=== PATIENT | male | born 1930 | race Caucasian/White ===

== ENCOUNTER → 2016-08-19 | Outpatient (CLI) | payer MEDICARE ==
[2016-08-19 14:51] LABS: BASO # 0.1 x10^3/uL (0.0-0.2); BASO % 1 % (0-3); EOS % 3 % (0-3); HEMATOCRIT 42.4 % (39.0-53.0); HEMOGLOBIN 14.2 g/dL (13.0-17.5); LYMPH # 2.2 x10^3/uL (1.0-4.8); LYMPH % 27 % (24-48); MEAN CORPUSCULAR HEMOGLOBIN 32 pg (25-35); MEAN CORPUSCULAR HGB CONC 33 g/dL (31-37); MEAN CORPUSCULAR VOLUME 96 fL (79-100); MONO % 10 % (0-9); NEUT % 60 % (31-73); PLATELET COUNT 336 x10^3/uL (140-400); RED BLOOD COUNT 4.42 x10^6/uL (4.30-5.70); RED CELL DISTRIBUTION WIDTH 12.5 % (11.5-14.5); WHITE BLOOD COUNT 8.3 x10^3/uL (4.0-11.0)
[2016-08-19 15:13] LABS: GFR 71.2
== END | disposition home or self-care (01) ==
LOC: LAB 14:30
PROVIDERS: ATTEND Psychiatry & Neurology Neurology
DX: G60.9 Hereditary and idiopathic neuropathy, unspecified (principal)
CPT/HCPCS: 36415; 82550; 82565; 82607; 84443; 84450; 84460; 84520; 85027

== ENCOUNTER → 2017-01-18 | Outpatient (CLI) | payer MEDICARE | END | disposition home or self-care (01) | LOC: LAB 10:46 | PROVIDERS: ATTEND Psychiatry & Neurology Neurology | DX: G60.9 Hereditary and idiopathic neuropathy, unspecified (principal) | CPT/HCPCS: 36415; 82565; 84520 ==

== ENCOUNTER 2020-08-27 20:20 | Observation (INO) | payer MEDICARE ==
[~2020-08-27] VITALS: Ht 177.8 cm; Wt 74.8 kg
[~2020-08-27 20:20] MED LIST: AMIO200T6 PO; AMLO-186 PO; ASPI325T8 PO; ATOR40TA59 PO; CLOP75TA PO; Diclofenac Sodium TP; FLUT16SP NS; LANS30TA6 FT; LISI-130 PO; METO25TA4 PO; POLY17PO52 PO; SALI44.3 PO
--- NOTE | 2020-08-27 21:37 | PHYS DOC ---
Past Medical History Past Medical History: Hypertension Additional Past Medical Histor: Gi bleed, pre-DM, dysphagia Past Surgical History: Cholecystectomy, Knee Replacement (Left) Smoking Status: Never Smoker Alcohol Use: None Drug Use: None General Adult EDM: Chief Complaint: GTUBE REPLACEMENT/MALFUNCTION HPI: HPI: Patient is a 89 year old male who presents to the ED after his Dobhoff tube came out this morning. He notes that he was in the shower when the tape that was holding the feeding tube in place came off and then the tube came out after that. The nurse noticed and then informed that he would have to get it replaced. Patient reports that he has baseline dysphagia secondary to a cardiac event. He had his Dobhoff tube placed on August 12, 2020 by interventional radiology. Sapheon review noted it was placed in the third portion of the duodenum under fluoroscopy. It is an 8 Nepali weighted tip feeding tube was advanced in the right naris. Patient denies other complaint. Review of Systems: Review of Systems: Constitutional: Denies fever or chills Eyes: Denies redness or eye pain HENT: Denies nasal congestion or epistaxis; reports dysphagia Respiratory: Denies cough or shortness of breath Cardiovascular: Denies chest pain or palpitations GI: Denies abdominal pain, nausea, or vomiting : Denies dysuria or hematuria Musculoskeletal: Denies back pain or joint pain Integument: Denies rash or skin lesions Neurologic: Denies headache, focal weakness or sensory changes Complete systems were reviewed and found to be within normal limits, except as documented in this note. Allergies: Allergies: Allergies Coded Allergies Type Severity Reaction Last Updated Verified morphine Allergy Intermediate Itching 07/22/20 Yes Physical Exam: PE: Constitutional: Well developed, well nourished, no acute distress, non-toxic appearance HENT: Normocephalic, atraumatic Eyes: Conjunctiva normal, no discharge Neck: Normal range of motion, no tenderness, supple Lungs & Thorax: No respiratory distress, equal chest rise and fall Abdomen: Soft, no tenderness Skin: Warm, dry, no erythema, no rash Extremities: No tenderness, ROM intact, no edema Neurologic: Alert and oriented X 3, no focal deficits noted Psychologic: Affect normal, judgment normal EKG: EKG: [] Radiology/Procedures: Radiology/Procedures: [] Course & Med Decision Making: Course & Med Decision Making Patient is an 81-year-old male who comes into the ED today for Dobhoff tube replacement. Patient's feeding tube requires interventional radiology in order to replace. We will plan to admit the patient to the hospital and have i nterventional radiology replace his Dobhoff in the morning. Patient is agreeable to plan and is full code. Patient requiring observation admission for further evaluation and treatment. Discussed with Dr. Mccauley (PCP) who is in agreement with admission. Discussed findings and plan with patient, who acknowledges understanding and agreement. Dragon Disclaimer: Dragon Disclaimer: This electronic medical record was generated, in whole or in part, using a voice recognition dictation system. Departure Departure Impression: Primary Impression: Encounter for feeding tube placement Additional Impression: Complication of feeding tube Disposition: ADMITTED INPT THIS HOSP Admitting Physician: Samy Mccauley Condition: STABLE Referrals: SAMY MCCAULEY MD (PCP) JAI ELLISON DO Aug 27, 2020 21:36
[2020-08-27] MEDS ORDERED: IV NORMAL SALINE 1000ML BAG 1,000 ML IV ONE (23:30)
[2020-08-28] VITALS: BP 107/74
[2020-08-28 02:55] VITALS: BP 110/72
[2020-08-28 07:00] VITALS: BP 115/54
--- NOTE | 2020-08-28 07:53 | PDOC ---
Provider Note Date of Service: DATE: 08/28/20 TIME: 07:51 Provider Note [id number] Justifications for Admission Other Justification JERSON MCKEON MD Aug 28, 2020 07:53
--- NOTE | 2020-08-28 08:03 | SSS ---
ADMIT DATE: 08/28/2020 HOSPITAL SUMMARY: An 89-year-old white male who is in [place] [facility] with a Dobbhoff in for dysphagia after prolonged ventilation from an AL recovery, accidentally had the Dobbhoff removed while in the shower at his nursing facility. He presented for IR consult to have this Dobbhoff replaced. The Dobbhoff will be placed today and then once it is proven to be functioning in a safe position he will be able to return to the assisted with all medications remaining the same. No laboratory studies or x-ray studies were done during the admissions. 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 OPERATIONS AND PROCEDURES: Dobhoff feeding tube placement. COMPLICATIONS: None. CONSULTATIONS: Interventional Radiology. DISPOSITION: All meds remain the same as before. Same feeding instructions and followup. JERSON MCKEON MD DR: LISANDRA/neda JOB#: [id number] / [id number]
[2020-08-28 11:00] VITALS: BP 116/69
[2020-08-28] MEDS ORDERED: LIDOCAINE 2% JELLY 6ML IN APPLICATOR. MM ONE (11:00)
--- NOTE | 2020-08-28 14:26 | NUR ---
Wound Care Wound Type/Assessment: Consult to eval and treat for wound present to coccyx on admission. Wound photo present in chart, measurements obtained and reflected in detailed assessment. Wound bed pale pink and granulating. Pt continent of bowel and bladder. Treatment Recommendations/Plan: Coccyx: Contact layer and foam dressing Education provided: Educated to change position and use a cushion when sitting up in a chair Offloading surface/device: Pt independent with bed mobility Recommended Referrals/Tests: As above
--- NOTE | 2020-08-28 15:26 | RAD ---
Fluoroscopy guided nasogastric tube placement INDICATION: Need for NG tube placement COMPARISON: KUB of 08/16/2020 FINDINGS: An appropriate timeout was observed. Using lidocaine jelly through the right nares and adequate lubri cation of the weighted tip enteric tube, a weighted tip enteric feeding tube was advanced to the four th portion of the duodenum with fluoroscopic confirmation and the tube was flushed after stylet was r emoved. Tube was secured to patient's nose with adhesive tape. 2 images were acquired for procedural documentation. Total fluoroscopy time was 0.7 minutes IMPRESSION: Successful NG tube placement under fluoroscopic guidance as described. Tube should be ready to use. Electronically signed by: Ammon Yu MD (08/28/2020 3:23 PM) [id number]
--- NOTE | 2020-08-28 17:22 | NUR ---
pt is discharged back to [facility] via wheelchair via transportation at 1459. pt is in stable condition. pt has all belongings with him. gave report to shaggy and she stated she had no further questions for me.
== END 2020-08-28 14:59 ==
LOC: ER 20:20 → 4 NORTH 22:08
PROVIDERS: ADMIT Family Medicine; ATTEND Family Medicine
DX: K94.23 Gastrostomy malfunction (principal); Z20.822 Contact with and (suspected) exposure to COVID-19; I10 Essential (primary) hypertension; R13.19 Other dysphagia; Z96.652 Presence of left artificial knee joint; Z90.49 Acquired absence of other specified parts of digestive tract
CPT/HCPCS: 43752; 87426; 96360; 96361; 99284; G0378; J7030; U0003; G0379

== ENCOUNTER 2020-08-28 19:55 | Observation (INO) | payer MEDICARE ==
[~2020-08-28] VITALS: Ht 177.8 cm; Wt 75.3 kg
--- NOTE | 2020-08-28 20:10 | PHYS DOC ---
Past Medical History Past Medical History: CAD, Hypertension, [place] Additional Past Medical Histor: Gi bleed, pre-DM, dysphagia Past Surgical History: Cholecystectomy, Knee Replacement Additional Past Surgical Histo: Left knee Smoking Status: Never Smoker Alcohol Use: None Drug Use: None General Adult EDM: Chief Complaint: Feeding tube displacement HPI: HPI: 89-year-old male presents via EMS from acute care center/rehab with report that patient's Dobhoff feeding tube was accidentally displaced. Patient had just been to the emergency department last night for same with replacement this morning with interventional radiology. Patient required its use secondary to dysphagia status post heart attack. Patient reports he was sitting on bedside commode and got up to get some help cleaning up and tube excellently pulled out. Patient denies any other complaint. Review of Systems: Review of Systems: Constitutional: Denies fever or chills Eyes: Denies redness or eye pain HENT: Denies nasal congestion or epistaxis Respiratory: Denies cough or shortness of breath Cardiovascular: Denies chest pain or palpitations GI: Denies abdominal pain, nausea, or vomiting; reports baseline dysphagia Integument: Denies rash or skin lesions Neurologic: Denies headache, focal weakness or sensory changes Complete systems were reviewed and found to be within normal limits, except as documented in this note. Current Medications: Current Medications Medications (Trade) Dose Ordered Sig/Feliberto Start Time Stop Time Status Last Admin Dose Admin Sodium Chloride 1,000 ml @ 100 mls/hr 1X ONCE 08/28/20 20:15 08/29/20 06:14 UNV Allergies: Allergies: Allergies Coded Allergies Type Severity Reaction Last Updated Verified morphine Allergy Intermediate Itching 07/22/20 Yes Physical Exam: PE: Constitutional: Well developed, well nourished, no acute distress, non-toxic appearance HENT: Normocephalic, atraumatic Eyes: Conjunctiva normal, no discharge Neck: Normal range of motion, supple Lungs & Thorax: No respiratory distress, equal chest rise and fall Abdomen: Soft, no tenderness Skin: Warm, dry, no erythema, no rash Extremities: No tenderness, ROM intact, no edema Neurologic: Alert and oriented X 3, no focal deficits noted Psychologic: Affect normal, judgment normal EKG: EKG: [] Radiology/Procedures: Radiology/Procedures: [] Course & Med Decision Making: Course & Med Decision Making Patient presents with report of accidental displacement of his Dobbhoff feeding tube. Patient had been admitted yesterday for similar occurrence. Patient has previously required interventional radiology placement. Denies other complaint. Patient kept n.p.o. IV fluid hydration provided. Patient requiring observation admission for further evaluation and treatment with interventional radiology consultation in the a.m. Discussed with Dr. Mccauley (PCP) who is in agreement with admission. Discussed findings and plan with patient, who acknowledges understanding and agreement. Dragon Disclaimer: Dragamor Disclaimer: This electronic medical record was generated, in whole or in part, using a voice recognition dictation system. Departure Departure Impression: Primary Impression: Complication of feeding tube Additional Impression: Encounter for feeding tube placement Disposition: ADMITTED INPT THIS HOSP (Observation) Admitting Physician: Jerson Mccauley Condition: STABLE Referrals: JERSON MCCAULEY MD (PCP) JAI ELLISON DO Aug 28, 2020 20:10
[2020-08-28] MEDS ORDERED: IV NORMAL SALINE 1000ML BAG 1,000 ML IV ONE (20:30)
[2020-08-28 22:56] VITALS: BP 114/80
[2020-08-29 03:00] VITALS: BP 110/73
--- NOTE | 2020-08-29 06:54 | PDOC ---
Provider Note Date of Service: DATE: 08/29/20 TIME: 06:52 Provider Note [id number] Justifications for Admission Other Justification JERSON MCKEON MD Aug 29, 2020 06:54
[2020-08-29 07:00] VITALS: BP 131/76
--- NOTE | 2020-08-29 08:05 | SSS ---
ADMIT DATE: 08/28/2020 TWENTY-THREE HOUR SUMMARY DATE OF DISCHARGE: 08/29/2020 The patient just had a Dobbhoff feeding tube replaced on the day of admission and somehow the tube came out or fell out in the nursing facility where he resides. He was readmitted to the ER for replacement again of the tube, which will be accomplished later today and he can be discharged with same feeding tube schedule and same meds through the Dobbhoff. He is not receiving a PEG tube as the specialist deemed that the risk is greater than benefit, so Dobhoff feeding plan is still in place until his dysphagia improves enough to try regular food swallowing. FINAL DIAGNOSIS: Replacement of Dobhoff feeding tube for neurogenic dysphagia. OPERATIONS, PROCEDURES, COMPLICATIONS AND CONSULTATIONS: None. DISPOSITION: All meds remain the same as per admission. Prognosis remains guarded. JERSON MCKEON MD DR: LISANDRA/neda JOB#: [id number] / [id number]
[2020-08-29] MEDS ORDERED: C.DIFF MED SCREEN BY RX. MC ONE (09:00)
--- NOTE | 2020-08-29 10:23 | NUR ---
MARY following. Discussed with RN, pt from [facility] (was just discharged back there yesterday), room air, NPO. Pt having a rapid COVID for return to [facility]. [facility] requesting a stitch or a neck tie to prevent dobhoff from coming out again. RN notified by Paloma (management planner). MARY will continue to follow. Addendum: 08/29/20 at 1528 by DEDE HERNANDEZ Discharge orders faxed to [facility], awaiting transportation time. Addendum: 08/29/20 at 1549 by DEDE HERNANDEZ [facility] arranged transportation for picking belt operator at 1630. RN notified. MARY notified pt's of discharge time back to [facility]. No further SW needs.
[2020-08-29 11:00] VITALS: BP 126/78
[2020-08-29] MEDS ORDERED: CONTRAST GIVEN. MC PRN (13:45)
[2020-08-29] MEDS ORDERED: IOHEXOL 300 MG/ML 50 ML VIAL. PO ONE (13:45)
--- NOTE | 2020-08-29 14:41 | NUR ---
Wound Care: Pt was seen yesterday per wound care regarding bilateral buttocks stage II PU. Patient discharged yesterday and was readmitted today. Dressing that wound care placed yesterday still clean, dry, and intact. Dressing change instructions left in room again. No other wounds. pt has wheelchair cushion that he is currently using while in bed. Bed lowered and call light in reach.
[2020-08-29 15:00] VITALS: BP 130/68
--- NOTE | 2020-08-29 15:26 | NUR ---
Pharmacy Medication Review S: Consulted for medication review re: C.diff Risk Assessment score of 4 O: RIGO JAIME is a 89 year old with: Previous C.diff infection: No Previous hospitalization: Within 30 days Recent antibiotics: No Use of gastric acid suppressor: Yes Transfer from [place]/[facility]: No Current antibiotic regimen: NONE Current acid suppression regimen: NONE A: Patient has been identified as having risk factors for C.diff infection as noted above. P: ABX DE-ESCALATION RECOMMENDED: NO, NOT ON ABX PROBIOTIC ORDERED: NO PPI CHANGED TO [id number]: HOME MEDS NOT ORDERED YET CINDY LOPES [facility], 08/29/20 [id number]
--- NOTE | 2020-08-31 08:11 | RAD ---
Abdominal fluoroscopy 08/29/2020 1:40 PM INDICATION: Dobbhoff placement COMPARISON: NG tube insertion 08/28/2020 TECHNIQUE: Single fluoroscopic spot views are provided. 2 abdominal radiographs obtained pre and post demonstration of 15 mL Omnipaque 300. Fluoroscopy time: 3.6 minutes FINDINGS: Fluoroscopy is provided for intraoperative use. Distal tip of the Dobbhoff catheter projects over the third portion of the duodenum, confirmed with oral contrast administration. IMPRESSION: 1. Dobbhoff placement utilizing fluoroscopy. Catheter in satisfactory position. 2. Please refer to the separate operative report for further details. Electronically signed by: Ashely Lau MD (08/31/2020 8:09 AM) [id number]
== END 2020-08-29 16:50 ==
LOC: ER 19:55 → 4 NORTH 20:00
PROVIDERS: ADMIT Family Medicine; ATTEND Family Medicine
DX: K94.20 Gastrostomy complication, unspecified (principal); Z20.822 Contact with and (suspected) exposure to COVID-19; I10 Essential (primary) hypertension; I25.10 Atherosclerotic heart disease of native coronary artery without angina pectoris; I25.2 Old myocardial infarction; R13.19 Other dysphagia; Z96.652 Presence of left artificial knee joint
CPT/HCPCS: 43752; 87426; 96360; 99284; G0378; J7030; Q9967; U0003; G0379

== ENCOUNTER → 2020-09-17 | Outpatient (CLI) | payer MEDICARE ==
[2020-08-29 15:00] VITALS: BP 130/68
[~2020-09-17] MED LIST changes: +IOHEXOL 300 MG/ML 50 ML VIAL. PO ONE; +LIDOCAINE 2% VISCOUS 15 ML SOLUTION. MM ONE
--- NOTE | 2020-09-17 17:22 | RAD ---
Dobbhoff tube exchange with fluoroscopy INDICATION: 89-year-old gentleman with recently placed Dobbhoff tube requiring replacement due to fra cture of the rigid plastic component. TECHNIQUE AND FINDINGS: With assistance from Dr. Pardo who placed the last weighted tip enteric feeding tube using a nasal c erclage device to assist with tube retention, the latch securing the tube to the patient's nose was r eleased and with fluoroscopic imaging guidance, the weighted tip enteric feeding tube was replaced wi th the tip terminating in the distal third portion duodenum in satisfactory position. The new tube wa s secured to the nose at 90 cm, the stylet removed and tube flushed with sterile saline. A single image was acquired for procedural documentation. Total fluoroscopy time was 2.8 minutes. 15 mL Omnipaque 300 were utilized for confirmation of tube positioning. IMPRESSION: Successful replacement of a weighted tip enteric feeding tube with tip in the distal third portion du odenum. Electronically signed by: Ammon Yu MD (09/17/2020 5:19 PM) [id number]
== END | disposition home or self-care (01) ==
LOC: RAD 10:29
PROVIDERS: ATTEND Internal Medicine Geriatric Medicine
DX: I44.2 Atrioventricular block, complete (principal); G60.8 Other hereditary and idiopathic neuropathies; I10 Essential (primary) hypertension; I25.10 Atherosclerotic heart disease of native coronary artery without angina pectoris; Z90.49 Acquired absence of other specified parts of digestive tract; Z98.890 Other specified postprocedural states; Z79.899 Other long term (current) drug therapy; Z79.82 Long term (current) use of aspirin; Z88.6 Allergy status to analgesic agent
CPT/HCPCS: 43752; Q9967